=== PATIENT | female | born 1950 | race Caucasian/White ===

== ENCOUNTER → 2020-09-07 12:43 | Outpatient (CLI) | payer MEDICARE ==
--- NOTE | ~2020-09-07 | EC ---
PATIENT:MICHAEL VERDIN DATE OF SERVICE: 09/07/20 SEX: F MEDICAL RECORD: [id number] DATE OF : [birth year] LOCATION:D.FORMERLY [facility] AGE OF PATIENT: 69 ADMISSION DATE: 09/07/20 REFERRING PHYSICIAN: INTERPRETING PHYSICIAN: SANDRA CARRENO MD ECHOCARDIOGRAM REPORT ECHO CHARGES 4 ECHO COMPLETE Date: 09/07/20 CLINICAL DIAGNOSIS: HEART MURMUR ECHOCARDIOGRAPHIC MEASUREMENTS (adult normal given) AC root (d.<3.7cm) 2.5 cm LV Septum d (<1.2 cm> 1.2 cm Valve Excursion 1.3 cm LV Septum (systole) 1.4 cm Left Atria (s.<4.0cm> 3.4 cm LVPW d(<1.2cm) 1.1 cm RV (d.<2.3cm) 3.1 cm LVPW (sytole) 1.7 cm LV diastole(<5.6CM) 5.1 cm MV E-F(>70mm/sec) cm LV systole 3.5 cm LVOT Diameter 1.8 cm MV exc.(>10mm) 1.2 cm Est.ejection fraction (50-75%) % DOPPLER: LVIT cm/sec A 92.0 cm/sec E 104.0 cm/sec LA cm/sec RVSP 39 mmHg LVOT 154 cm/sec AOP1/2T m/s Asc. Ao 189 cm/sec RVOT 59 cm/sec RA cm/sec PA 112 cm/sec AV Gradient Peak 14.35mmHg AV Mean 6.64 mmHg AV Area 1.9 cm MV Gradient Peak 4.21 mmHg MV Mean 1.74 mmHg MV Area cm COMMENTS: Waste Water Operator: 2 OBED [place] Upper Leather Sorter: 3 Dr. Merrill TAPE# PACS Pericardial Effusion N DATE OF SERVICE: Adequate 2D, color flow imaging, spectral Doppler, and M-Mode. FINDINGS: No LVH. LV internal dimensions are normal. Wall motion is normal. EF is greater than or equal to 55%. Aortic valve is sclerotic. No evidence of stenosis by Doppler interrogation. Left atrium is normal. Mitral valve shows no prolapse. Trace MR. Right-sided chambers are grossly normal. Trace TR. TRANSINT:[id number] Voice Confirmation ID: [id number] DOCUMENT ID: [id number] ECHOCARDIOGRAM REPORT [id number] MICHAEL VERDIN GREGORY A MD CC: [id number] DICTATION DATE: 09/08/20 1429 SKEIN YARN DYER: 09/08/20 2246 DEP CLI 09/07/20 [place] [id number] [place] [id number]
--- NOTE | 2020-09-08 14:15 | ST ---
PATIENT:MICHAEL VERDIN MEDICAL RECORD: [id number] SEX: F LOCATION:[facility] ORDER #: ADMISSION DATE: 09/07/20 AGE OF PATIENT: 69 REFERRING PHYSICIAN: INTERPRETING PHYSICIAN: SANDRA CARRENO MD DATE OF SERVICE: 09/07/2020 PROCEDURE: Treadmill stress test. Baseline ECG is normal. Exercised for 5 minutes 3 seconds on Shai protocol. Maximum heart rate was 144 beats per minute, greater than 85% max predicted. No ECG changes of ischemia. No symptoms of ischemia. No blood pressure response to exercise. No arrhythmias noted. Fair exercise tolerance for age. TRANSINT:[id number] Voice Confirmation ID: [id number] DOCUMENT ID: [id number] SANDRA CARRENO MD at 1415 CC: [id number] DICTATION DATE: 09/08/20 1245 MASONRY TEACHER: 09/08/20 1301 DEP CLI 09/07/[address] [id number]
== END | disposition home or self-care (01) ==
LOC: D.HCCECHO 12:43
PROVIDERS: ATTEND Internal Medicine Interventional Cardiology
DX: I20.9 Angina pectoris, unspecified (principal); R01.1 Cardiac murmur, unspecified